=== PATIENT | male | born 1965 | race Caucasian/White ===

== ENCOUNTER 2018-02-24 09:53 | Emergency (ER) | payer OTHER, SELFPAY ==
[2018-02-24] VITALS (18 sets, daily range): BP systolic 74–137; BP diastolic 42–75; PULSE 27–80; RESP 14–23; TEMP 36.6; O2SAT 90–100; BMI 25.2
--- NOTE | 2018-02-24 09:56 | RAD_ITS ---
STUDY: X-RAY CHEST REASON FOR EXAM: Male, 52 years old. Chest pain. Allergic reaction to bee sting TECHNIQUE: Single AP portable view of the chest. COMPARISON: None. FINDINGS: The lungs are clear and expanded. There is no demonstrated pleural abnormality. Normal size heart. Normal mediastinum and miracle. Normal visualized pulmonary arteries. Normal visualized aortic arch and descending thoracic aorta. Normal visualized thoracic spine. Normal visualized ribs, clavicles, and shoulders. There is no demonstrated abnormality of the visualized soft tissue structures of the upper abdomen. RAD/Chest 1 View (Portable) IMPRESSION: Normal x-ray examination of the chest. Electronically Signed: Juan Herndon MD at 10:21 EDT , Service support ,
--- NOTE | 2018-02-24 09:57 | EKG12_ITS ---
Test Reason : ALLERGIC RXN Blood Pressure : / mmHG Vent. Rate : 041 BPM Atrial Rate : 041 BPM P-R Int : 162 ms QRS Dur : 106 ms QT Int : 474 ms P-R-T Axes : 026 -23 048 degrees QTc Int : 391 ms Marked sinus bradycardia Abnormal ECG Confirmed by SHARITA MIMS MD ([id number]), supervising film or videotape editor CHINTAN MONSIVAIS ([id number]) on 02/28/2018 3:41:48 PM Referred By: AYAD Confirmed By:SHARITA MIMS MD
[2018-02-24] MEDS: DiphenhydrAMINE 50 MG/ML Syringe 25 MG IV (10:03)
[2018-02-24] MEDS: MethylPREDNISolone 125 MG/2 ML Vial IV (10:03)
[2018-02-24] MEDS: 0.9% Normal Saline 1,000 ML 1000 ML IV (10:04)
[2018-02-24 10:15] LABS: Absolute Lymphocyte Count 1.51 X10^3/ul (0.83-4.51); Absolute Neutrophil Count 1.2 X10^3/uL (2.0-7.7); Basophil# 0.02 X10^3/uL; Basophil% 0.6 % (0-1); Eosinophil# 0.06 X10^3/uL; Eosinophils% 1.9 % (0-5); Hematocrit 40.4 % (40-54); Hemoglobin 13.8 g/dl (13.0-16.5); Lymphocyte # 1.51 X10^3/ul (4.0); Lymphocyte % 47.9 % (19-41); Mean Corp Hgb Conc 34.2 g/gl (32-36); Mean Corpuscular Volume 93.7 fL (80-94); Mean Platelet Vol. 9.1 fl (6.2-12.0); Monocyte# 0.35 X10^3/uL; Monocyte% 11.1 % (0-10); Neutrophil % 38.2 % (47-70); Platelet Count 220 K/mm3 (150-450); RBC Distribution Width CV 13.5 % (11.6-14.6); RBC Distribution Width SD 46.7 fl (35.1-43.9); Red Blood Count 4.31 M/mm3 (4.6-6.2); White Blood Count 3.2 K/mm3 (4.4-11.0)
[2018-02-24 10:16] LABS: POSITIVE COUNT NO; POSITIVE DIFFERENTIAL NO; POSITIVE MORPHOLOGY NO
--- NOTE | 2018-02-24 10:21 | ED.RN ---
HEART RATE IMPROVED WITH SECOND IM EPI. COLOR IMPORVED. NO LONGER DIAPHORETIC. EPI DRIP AT BEDSIDE, HOLDING AT THIS TIME PER DR ABEL.
[2018-02-24 10:33] LABS: Anion Gap 7 (5-15); BUN 20 mg/dL (7-18); BUN/Creat Ratio 15.9 RATIO (10-20); Calcium,Total 10.3 mg/dL (8.5-10.1); Chloride 105 mmol/L (98-107); Creatinine, Serum 1.26 mg/dL (0.70-1.30); EST Glomerular Filtration Rate 64 mL/min (>60); Est Glom Filt Rate - Afr Amer 77 mL/min (>60); Estimated Creatinine Clearance 66.35 ml/min; Glucose 101 mg/dL (74-106); Potassium 4.4 mmol/L (3.5-5.1); Sodium Level 140 mmol/L (136-145)
--- NOTE | 2018-02-24 10:34 | EKG12_ITS ---
Test Reason : REPEAT Blood Pressure : / mmHG Vent. Rate : 067 BPM Atrial Rate : 076 BPM P-R Int : 150 ms QRS Dur : 106 ms QT Int : 426 ms P-R-T Axes : 043 -37 030 degrees QTc Int : 450 ms Sinus rhythm with marked sinus arrhythmia Left axis deviation Abnormal ECG Confirmed by PRASANNA SONI, SHARITA ([id number]), electronics maintenance technician CHINTAN MONSIVAIS ([id number]) on 02/28/2018 3:42:05 PM Referred By: PAGE Confirmed By:SHARITA MIMS MD
--- NOTE | 2018-02-24 12:45 | ED.DCSUM_ITS ---
- ER Visit Summary Date of Service: 02/24/18 Chief Complaint: Bee sting History of Present Illness: The patient is a 52 M that was stung by a bee over his left Achilles region. This was less than a half hour prior to arrival. He is presenting with sweating and lightheadedness. He feels cold. Denies any history of anaphylaxis. He did not take anything prior to arrival. Denies chest pain or shortness of breath. Denies nausea or vomiting. Denies any other injuries or exposures. Physical Examination: Mean arterial blood pressure is 55. Heart rate is in the 40s. Respiratory rate 14. 100% on nasal cannula. Afebrile. Patient is diaphoretic and in mild distress. Alert and oriented. No focal or lateralizing neurologic abnormalities. Heart is bradycardic and regular. Lungs are clear and abdomen is soft. Extremities show erythema over his left Achilles region. No stinger was visualized. His extremities are otherwise slightly pale. No rash or swelling noted diffusely. Test Results: EKG showed sinus rhythm at a 41. CBC and BMP unremarkable. Troponin normal. Chest x-ray normal. Emergency Department Course and Treatment: Patient was seen immediately. Placed on a monitor and oxygen. He was given a fluid bolus. Treated with an EpiPen, Solu-Medrol, and Benadryl IV. Patient had no significant change after the first EpiPen dose. I ordered an epinephrine drip. While awaiting this, he received a second dose of IM epinephrine. Patient had subsequent improvement. Repeat EKG was done and showed a rate of 67 , sinus rhythm, no acute changes. He continued to have a fluid bolus. He did not require an epinephrine drip. Patient was observed after the second dose of epinephrine. We will recheck a troponin, but otherwise he is doing well. Vitals including heart rate and blood pressure have stabilized. Patient maintain a heart rate in the 60s-70s. Blood pressures remained stable. Skin appears normal. Normal mentation. No new or worsening symptoms. Patient will be discharged after over 4 hours of observation in the emergency department. Rebound symptoms were described. He was given a prescription for an EpiPen. Call 911 if you have to use it. He was also given a prescription for Benadryl and prednisone. Treatment Plan: As above Disposition: Discharged Impression: 1. Anaphylaxis This note was generated with demandmartation software. It may contain incorrect words, spelling, and punctuation that were not noted in review of the chart prior to signing ED Disposition - Plan for ED Patient: Chief Complaint: Allergic Reaction Referrals: Sam Stevens DO [Primary Care Provider] -
--- NOTE | 2018-02-24 15:04 | ED.DEP ---
ED Disposition - Plan for ED Patient: Chief Complaint: Allergic Reaction Instructions: ED Anaphylaxis General Prescriptions: Epinephrine [Epi Pen] 0.3 mg IM X1 #2 syringe Prednisone 40 mg PO DAILY #16 tab DiphenhydrAMINE [Benadryl] 25 mg PO TID #15 cap Referrals: Sam Stevens DO [Primary Care Provider] -
== END 2018-02-24 15:29 | disposition home or self-care (01) ==
PROVIDERS: Emergency Provider Emergency Medicine; Family Provider Preventive Medicine Occupational Medicine; PCP Preventive Medicine Occupational Medicine
DX: T63.441A Toxic effect of venom of bees, accidental (unintentional), initial encounter (principal); T78.2XXA Anaphylactic shock, unspecified, initial encounter; Y93.9 Activity, unspecified; Y92.9 Unspecified place or not applicable; Y99.9 Unspecified external cause status; I10 Essential (primary) hypertension; Z79.899 Other long term (current) drug therapy
CPT/HCPCS: 71045; 80048; 84484; 85025; 93005; 96361; 96372; 96374; 96375; 99285; J7030; J7050; A4216

== ENCOUNTER 2020-12-08 14:54 | Inpatient (IN) | payer OTHER, SELFPAY ==
[2020-12-08 14:55] VITALS: BP 139/112; PULSE 65; RESP 16; TEMP 36.8; O2SAT 96; BMI 29.0
--- NOTE | 2020-12-08 15:23 | ED.DCSUM_ITS ---
History of Present Illness Chief Complaint: Substance Abuse Detail of Chief Complaint: Alcohol dependency Informant: Patient, Significant Other Limited by: Intoxicated Onset: - - Patient states he began drinking at the age of 17 Context: Gradual Onset Timing: Continuous Quality: Drinks between 10-18 beers per day Location: Home Current Severity: Severe Maximum Severity: Severe Worsened by: Nothing Relieved by: Nothing Associated Symptoms: No symptoms of withdrawal presently. Narrative: Patient is a 55-year-old male who admits that he started drinking at age 17. He drinks on average 10 beers a day. states during the evening he has 324 ounce cans of beer and a container that is even larger for his fourth drink. He has never been in a detox program. He drives a dump truck. He has not made it to work the last 2 days. His last drink was 2 hours ago. He presently has no symptoms withdrawal. Nurse states he is hallucinating. He has no hallucinations or delusions presently based on my examination at 1520. Patient denies headache, visual, ocular auditory symptoms. Patient has cardiac respiratory symptoms. Patient denies GI symptoms and specifically hematemesis, melena medic easier. He denies dysuria, frequency, urgency or hematuria. He denies bruising easily. He denies illicit drug use. Prior similar symptoms: No Recent Illness/Hospitalization: No - Past Medical History (1) History of hypertension Status: Acute Past Medical History - Allergies and Home Meds Allergies/Adverse Reactions: Allergies Penicillins [PCN] Allergy (Verified 12/08/20 14:54) Unknown BEES Allergy (Uncoded 12/08/20 14:54) Anaphylaxis Primary Care Physician: Sam Stevens DO [Primary Care Provider] - Prior records reviewed: Yes Lives: Spouse/ Significant Other Smoking Status: Former smoker Alcohol: Heavy Drugs: None Review of Systems General: Denies: Chills, Fever, Sweats Eyes: Denies: Visual changes - bilaterally, Blurred Vision - bilaterally, Diplopia ENT: Denies: Bilateral ear pain, Rhinorrhea, Sore throat Cardiovascular: Denies: Chest pain, Palpitations Respiratory: Denies: Dyspnea, Cough, Dyspnea on exertion Gastrointestinal: Denies: Abdominal pain, Nausea, Vomiting, Diarrhea, Melena, Hematochezia Genitourinary: Denies: Dysuria, Hematuria, Frequency Musculoskeletal: Denies: Myalgias, Arthralgias, Neck pain, Back pain, Extremity Pain Skin: Reports: Abrasions - Over the medial epicondyles.. Denies: Rash, Wounds Neurological: Denies: Headache, Weakness, Numbness Endocrine: Denies: Polyuria, Polydipsia Hematologic: Denies: Easy bruising, Easy bleeding Allergy: Denies: Uticaria Physical Exam Vital Signs/Narrative: Vital Signs Temp Pulse Resp BP Pulse Ox 12/08/20 14:55 98.2 F 65 16 139/112 H 96 Inital Vital Signs reviewed: Yes General: Well nourished, Well developed, No Acute Distress Head: Normocephalic, Atraumatic Eyes: Perrl, EOMI ENT: Moist mucous membranes, No rhinorrhea Neck: Supple, Nontender Cardiovascular: Regular rate, Regular rhythm, No murmurs Respiratory: No distress, CTA bilaterally, Chest nontender Abdomen: Soft, Nontender, Nondistended, Normal bowel sounds Back: Nontender, Normal Inspection Extremities: Nontender, No edema, - - Axillary, median, radial and ulnar function intact. Skin: Normal color, No rash, Trauma - Radiation over the left medial epicondyle. Neurological: Alert, Oriented x3, Cranial nerves II-XII grossly intact, Normal Strength, Normal Sensation, Normal DTR - There is no clonus or Babinski sign., - - Cranials 2 through 12 are intact. Patient has an inappropriate laugh. Psychological: Normal affect, Normal Mood Diagnostic/Tx/Re-eval Laboratory Results 12/08/20 15:40 Sodium 140 Potassium 4.2 Chloride 105 Carbon Dioxide 28.0 Anion Gap 7 BUN 11 Creatinine 0.70 Estim Creat Clear Calc 107.60 Est GFR (MDRD) Af Amer 150 Est GFR (MDRD) Non-Af 124 BUN/Creatinine Ratio 15.7 Glucose 125 H Calcium 8.7 Total Bilirubin 0.20 AST 38 H ALT 34 Alkaline Phosphatase 52 Total Protein 7.6 Albumin 3.9 Globulin 3.7 Albumin/Globulin Ratio 1.1 Blood sugar is slightly elevated. Alcohol is 352. - Medical Decision Making Is clinically intoxicated. There is no signs of alcohol withdrawal. Patient is requesting detox. His alcohol has affected his ability to go to work the last 2 days. Will contact hospitalist for admission. ED Disposition - Plan for ED Patient: Disposition: Acute Care Hospital [facility] Diagnosis: Alcohol dependency, Alcohol intoxication with blood alcohol level greater than 0.3 Referrals: Sam Stevens DO [Primary Care Provider] -
[2020-12-08 16:46] LABS: ALB/GLOB Ratio 1.1 RATIO (0.9-2.4); AST(SGOT) 38 U/L (15-37); Alanine Aminotransfer ALT/SGPT 34 U/L (16-61); Albumin, Serum 3.9 g/dL (3.2-5.0); Alkaline Phosphatase 52 U/L (45-117); Anion Gap 7 (5-15); BUN 11 mg/dL (7-18); BUN/Creat Ratio 15.7 RATIO (10-20); Calcium,Total 8.7 mg/dL (8.5-10.1); Chloride 105 mmol/L (98-107); EST Glomerular Filtration Rate 124 mL/min (>60); Est Glom Filt Rate - Afr Amer 150 mL/min (>60); Globulin 3.7 g/dL (2.2-4.2); Glucose 125 mg/dL (74-106); Potassium 4.2 mmol/L (3.5-5.1); Protein, Total 7.6 g/dL (6.4-8.2); Sodium Level 140 mmol/L (136-145)
--- NOTE | 2020-12-08 17:10 | CM.ED ---
SOCIAL WORK Referral Source: Dr. Piper Reason for Consult: Requesting detox from alcohol Patient presents to [facility] ER for detox from alcohol. Patient stated drinks around 10 beers/day. present with patient. Patient in agreement with detox. Treatment Navigator, Aric updated on patient's admission. Alexey from to be in tomorrow to complete assessment. Plan: Admit to [facility] Maldonado, GRAVITY METER OBSERVER, CYBER INCIDENT HANDLER
--- NOTE | 2020-12-08 17:11 | NURSING ---
[facility] GREATER THAN 0.3
--- NOTE | 2020-12-08 17:14 | HP.PCM_ITS ---
Problem List (1) Impending alcohol withdrawal Status: Acute (2) Alcohol intoxication Status: Acute (3) Alcohol abuse Status: Chronic (4) Hypertension Status: Chronic History of Present Illness Date of Admission: 12/08/20 Chief Complaint: Alcohol abuse requesting detox. The patient is a 55 year old M with past medical history as mentioned above presented to the emergency room requesting admission for acute alcohol intoxication/impending withdrawal for medical stabilization. Patient stated that he has been drinking since age of 17, he drinks average of 10 beers daily and his last drink was 3 AM this morning. At this time, he has no significant withdrawal symptoms. He never went into detox program before. Reportedly, his is concerned about the patient because he was not able to go to work for the last couple of days. He denied use of street drugs. He has history of hypertension which has been under control with lisinopril, HCTZ and bisoprolol. In the emergency department, his vital signs were stable. BMP was unremarkable. Blood alcohol level was 352. Urine drug screen is pending. Patient is being admitted for acute alcohol intoxication/impending withdrawal for medical stabilization. Past Medical History Past Medical History (Chronic Problems): Chronic Problems Alcohol abuse (Chronic) Hypertension (Chronic) Allergies Penicillins [PCN] Allergy (Verified 12/08/20 14:54) Unknown BEES Allergy (Uncoded 12/08/20 14:54) Anaphylaxis Home Medications: Ambulatory Orders Medication Instructions Recorded Bisoprolol/Hydrochlorothiazide 1 tab PO DAILY 02/24/18 [Bisoprolol-Hctz 10-6.25 mg Tab] Epi Pen 0.3 mg IM X1 #2 syringe 02/24/18 Lisinopril 20 mg PO DAILY 02/24/18 Surgical History: no surgical history Psychiatric History: No pertinent psych hx Lives: Spouse/ Significant Other Smoking Status: Former smoker Tobacco Use: Chew Alcohol: Heavy Drugs: None - *Family History Maternal History Items: No pertinent history Paternal History Items: No pertinent history Review of Systems Constitutional: Denies: Anorexia, Chills, Fever, Weakness Eyes: Denies: Blurred vision, Double vision, Drainage, Redness HEENT: Denies: Difficulty Hearing, Dysphasia, Ear Pain, Eye Pain, Nasal Congestion, Sore Throat Cardiovascular: Denies: Chest Pain, Chest Pressure, Chest Tightness, Edema, Palpitations, Syncope Respiratory: Denies: Cough, Pleuritic Pain, Shortness of Breath, Sputum production, Wheezing Gastrointestinal: Denies: Abdominal Pain, Constipation, Diarrhea, Nausea, Vomiting Genitourinary: Denies: Dysuria, Frequency, Hematuria Musculoskeletal: Denies: Arm Pain, Back Pain, Foot Pain, Joint Tenderness, Neck Pain Skin: Denies: Dryness, Rash Neurological: Denies: Balance problems, Double vision, Change in Speech, Slurred speech, Confusion, Focal weakness, Headaches Psychiatric: Denies: Anxiety, Depression Endocrine: Denies: Change in Body Habitus, Polydipsia, Polyuria VTE Information - Inpt Only VTE Present on Admission: No VTE Mechan Device Prophylaxis: None VTE Pharm Prophylaxis ordered?: No - Physical Exam Vitals/I&O's: Vital Signs Temp Pulse Resp BP Pulse Ox 98.2 F 65 16 139/112 H 96 12/08/20 14:55 12/08/20 14:55 12/08/20 14:55 12/08/20 14:55 12/08/20 14:55 Oxygen Delivery Method Room Air Weight: 180 lb Body Mass Index (BMI) 29.0 General: Alert, Oriented x3, Cooperative, No apparent distress HEENT: Atraumatic, PERRLA, EOMI, Normocephalic Oral: Moist Mucosa, No Gingival or Mucosal Lesions/ Ulcerations Neck: Supple, No JVD, Negative Carotid Bruits, Trachea Midline, Thyroid Normal Size and Texture Lungs: Clear to auscultation, Normal air movement, No rhonchi, No wheeze, No rales Cardiovascular: Regular rate, Regular Rhythm, Normal S1, Normal S2, No murmurs, PMI Normal Abdomen: Bowel Sounds Present, Soft, Non Tender, Non-Distended, No Hepato- splenomegaly Extremities: No clubbing, No cyanosis, No edema Skin: No rashes, No breakdown Lymphatic: No Cervical, Supraclavicular, or Inguinal Adenopathy Neurological: Cranial nerves II-XII grossly intact, Motor Exam 5/5 strength throughout Psych/Mental Status: Normal Affect, Appropriate, Alert and oriented to time, place, person, mood and affect Laboratory Results 12/08/20 15:40: Sodium 140, Potassium 4.2, Chloride 105, Carbon Dioxide 28.0, Anion Gap 7, BUN 11, Creatinine 0.70, Estim Creat Clear Calc 107.60, Est GFR (MDRD) Af Amer 150, Est GFR (MDRD) Non-Af 124, BUN/Creatinine Ratio 15.7, Glucose 125 H, Calcium 8.7, Total Bilirubin 0.20, AST 38 H, ALT 34, Alkaline Phosphatase 52, Total Protein 7.6, Albumin 3.9, Globulin 3.7, Albumin/Globulin Ratio 1.1 12/08/20 15:40: Ethyl Alcohol 352.0 H* Assessment/Plan All Active Problems Impending alcohol withdrawal (Acute) Alcohol intoxication (Acute) This is a 55 years old male patient presented to the emergency room requesting admission for acute alcohol intoxication with impending withdrawal and is being admitted for medical stabilization. #1 acute alcohol desiccation/impending withdrawal: Blood alcohol level is 352. Patient is alert and oriented x3. Vital signs are stable. Urine drug screen is pending. Patient denied any use of street drugs. Plan: Admit to MedSur floor, start alcohol withdrawal protocol with tapering phenobarbital, thiamine and folic acid supplement, Tylenol as needed, as needed Bentyl, hypertension, Vistaril, Imodium, Zofran and trazodone, consult 180 program. #2 hypertension: Blood pressure stable, continue lisinopril, HCTZ and bisoprolol. #3 DVT prophylaxis: Low risk patient, no prophylaxis indicated, ambulate. This note was generated with [employer] dictation software. It may contain incorrect words, spelling, and punctuation that were not noted in checking the note before signing. Inpatient E&M: 47031 Init Hosp L2
[2020-12-08 17:26] VITALS: BP 152/89; PULSE 65; RESP 16; TEMP 36.8; O2SAT 96
[2020-12-08 17:38] VITALS: BP 124/87; PULSE 68; RESP 18; O2SAT 99
[2020-12-08 18:04] VITALS: BMI 27.3
[2020-12-08 18:06] VITALS: BP 117/72; PULSE 77; RESP 16; TEMP 36.6; O2SAT 99
[2020-12-08 18:11] VITALS: BMI 27.3
[2020-12-08] MEDS: Phenobarbital 32.4 MG Tablet 64.8 MG PO ×2 (18:22→22:14)
[2020-12-08 22:10] LABS: Amphetamine Urine VISTA NEGATIVE (<1000 ng/mL); Barbiturate Urine VISTA NEGATIVE (< 200 ng/mL); Benzodiazepine Urine VISTA NEGATIVE (< 200 ng/mL); Cocaine Urine VISTA NEGATIVE (< 300 ng/mL); Ecstacy Urine VISTA NEGATIVE (< 500 ng/mL); Methadone Urine VISTA NEGATIVE (< 300 ng/mL); PCP Urine VISTA NEGATIVE (< 25 ng/mL); THC Urine VISTA NEGATIVE (< 50 ng/mL); Vista UDS pH Range 6
[2020-12-08 22:46] VITALS: BP 120/65; PULSE 77; RESP 16; TEMP 37.1; O2SAT 96
[2020-12-09 02:00] VITALS: BP 124/68; PULSE 63; RESP 16; TEMP 37; O2SAT 98
[2020-12-09] MEDS: Phenobarbital 32.4 MG Tablet 64.8 MG PO ×6 (02:05→22:34)
[2020-12-09 06:00] VITALS: BP 135/79; PULSE 59; RESP 16; TEMP 37.3; O2SAT 99
[2020-12-09] MEDS: Thiamine Hydrochloride 100 MG Tablet PO (10:11)
[2020-12-09] MEDS: Folic Acid 1 MG Tablet PO (10:11)
[2020-12-09] MEDS: hydroCHLOROthiazide 6.25mg TAB 6.25 MG PO (10:11)
[2020-12-09] MEDS: Lisinopril 20 MG Tablet PO (10:11)
[2020-12-09] MEDS: Bisoprolol Fumarate 5 MG Tablet 10 MG PO (10:11)
[2020-12-09 10:19] VITALS: BP 143/87; PULSE 75; RESP 18; TEMP 36.6
--- NOTE | 2020-12-09 10:30 | PN_ITS ---
Patient Problems: Active and Suspected Problems Impending alcohol withdrawal (Acute) Alcohol intoxication (Acute) Subjective: Feels good. No issues overnight. No tremors. Tolerating PO. Vitals/I&O's: Vital Signs Temp Pulse Resp BP Pulse Ox 36.6 C 75 18 143/87 H 99 12/09/20 10:19 12/09/20 10:19 12/09/20 10:19 12/09/20 10:19 12/09/20 06:00 Oxygen Flow Rate (L/min) 96 Oxygen Delivery Method Room Air Weight: 76.839 kg Body Mass Index (BMI) 27.3 General: Alert, No apparent distress HEENT: Atraumatic, Normocephalic Oral: Moist Mucosa, No Gingival or Mucosal Lesions/ Ulcerations Neck: No Nodes, Thyroid Normal Size and Texture Lungs: Clear to auscultation, Normal air movement, No rhonchi, No wheeze, No rales Cardiovascular: Regular rate, Regular Rhythm, Normal S1, Normal S2, No murmurs Abdomen: Bowel Sounds Present, Soft, Non Tender, Non-Distended, No Hepato- splenomegaly Extremities: No edema, No Calf Tenderness Psych/Mental Status: Normal Affect, Appropriate Laboratory Results 12/08/20 15:40: Sodium 140, Potassium 4.2, Chloride 105, Carbon Dioxide 28.0, Anion Gap 7, BUN 11, Creatinine 0.70, Estim Creat Clear Calc 107.60, Est GFR (MDRD) Af Amer 150, Est GFR (MDRD) Non-Af 124, BUN/Creatinine Ratio 15.7, Glucose 125 H, Calcium 8.7, Total Bilirubin 0.20, AST 38 H, ALT 34, Alkaline Phosphatase 52, Total Protein 7.6, Albumin 3.9, Globulin 3.7, Albumin/Globulin Ratio 1.1 12/08/20 15:40: Ethyl Alcohol 352.0 H* 12/08/20 21:30: Urine Opiates Screen NEGATIVE, Urine Methadone Screen NEGATIVE, Ur Barbiturates Screen NEGATIVE, Ur Phencyclidine Scrn NEGATIVE, Ur Amphetamines Screen NEGATIVE, U Methamphetamin-MDMA NEGATIVE, U Benzodiazepines Scrn NEGATIVE, Urine Cocaine Screen NEGATIVE, U Cannabinoids Screen NEGATIVE, Ur Drug Screen Comment Current Medications Acetaminophen (Acetaminophen 500 Mg Tablet) 500 mg PO Q4H PRN PRN PRN Reason: Temp > 100.4 F Bisoprolol Fumarate (Bisoprolol Fumarate 5 Mg Tablet) 10 mg PO DAILY [facility] Last Admin: 12/09/20 10:11 Dose: 10 mg Documented by: Dicyclomine HCl (Dicyclomine 10 Mg Capsule) 20 mg PO Q6H PRN PRN PRN Reason: abdominal discomfort Folic Acid (Folic Acid 1 Mg Tablet) 1 mg PO DAILY@0800 [facility] Last Admin: 12/09/20 10:11 Dose: 1 mg Documented by: Gabapentin (Gabapentin 300 Mg Capsule) 300 mg PO Q8H PRN PRN PRN Reason: moderate to severe anxiety Hydrochlorothiazide (Hydrochlorothiazide 6.25mg Tab) 6.25 mg PO DAILY [facility] Last Admin: 12/09/20 10:11 Dose: 6.25 mg Documented by: Hydroxyzine Pamoate (Hydroxyzine Olga 25 Mg Capsule) 50 mg PO Q4H PRN PRN PRN Reason: mild anxiety Lisinopril (Lisinopril 20 Mg Tablet) 20 mg PO DAILY [facility] Last Admin: 12/09/20 10:11 Dose: 20 mg Documented by: Loperamide HCl (Loperamide 2 Mg Capsule) 2 mg PO Q4H PRN PRN PRN Reason: LOOSE STOOLS Nutritional Formula (Lactose Free) (Ensure Enlive 120 Ml Liquid) 120 ml PO 4X/DAY [facility] Last Admin: 12/09/20 10:16 Dose: 120 ml Documented by: Ondansetron HCl (Ondansetron 8 Mg Tablet) 8 mg PO Q8H PRN PRN PRN Reason: NAUSEA Phenobarbital (Phenobarbital 32.4 Mg Tablet) 97.2 mg PO Q4H [facility]; Taper Stop: 12/13/20 01:59 Last Admin: 12/09/20 10:15 Dose: 97.2 mg Documented by: Sodium Chloride (0.9% Saline Lock 10 Ml Syringe) 10 - 40 ml IV UD PRN PRN Reason: SALINE FLUSH Thiamine HCl (Thiamine Hydrochloride 100 Mg Tablet) [facility] Last Admin: 12/09/20 10:11 Dose: 100 mg Documented by: Trazodone HCl (Trazodone 100 Mg Tablet) 100 mg PO QHS PRN PRN Reason: INSOMNIA STROKE Vital Signs/Narrative: Vital Signs Temp Pulse Resp BP 12/09/20 10:19 36.6 C 75 18 143/87 H Medical Necessity - Tobacco Use Smoking Status: Former smoker Tobacco Use: Chew Assessment/Plan All Active Problems Impending alcohol withdrawal (Acute) Alcohol intoxication (Acute) 1. acute alcohol withdrawal pt drinks 3-4 25oz Natural Lights/day. Last drink on 12/08 continue phenobarbital thiamine and folate. addiction medicine to see pt states that he has already been in contact w Brandan 2. VTE prophylaxis: low risk and not indicated Inpatient E&M: 78704 Subs Hosp L2
--- NOTE | 2020-12-09 11:33 | ADDICTION ---
This comic writer met with PT to complete ASAM, MSE, AUDIT assessments and to plan for d/c. All assessments completed, faxed to [facility] and placed in PT's chart. PT plans to f/u with [facility] for individual counseling and attend AA meetings. Appt scheduled for f/u on 12/11/2020 at 3PM. No transportation needs noted.
[2020-12-09 14:47] VITALS: BP 118/64; PULSE 55; RESP 16; TEMP 36.6; O2SAT 97
[2020-12-09 18:29] VITALS: BP 119/64; PULSE 54; RESP 16; TEMP 36.8; O2SAT 98
[2020-12-09 22:00] VITALS: BP 132/93; PULSE 57; RESP 16; TEMP 36.7; O2SAT 99
[2020-12-10 02:00] VITALS: BP 111/63; PULSE 53; RESP 16; TEMP 36.8; O2SAT 98
[2020-12-10] MEDS: Phenobarbital 32.4 MG Tablet 64.8 MG PO ×3 (02:10→09:55)
[2020-12-10] MEDS: Nicotine Polacrilex 2 MG GUM PO (02:13)
--- NOTE | 2020-12-10 09:04 | DCINST_ITS ---
- Discharge Diagnoses Current Active Problems: Current Active and Chronic Problems Impending alcohol withdrawal (Acute) Alcohol intoxication (Acute) Alcohol abuse (Chronic) Hypertension (Chronic) You will use the following diet at home:: Regular Your food should be the consistency of: Regular Your liquids should be the consistency of: Regular/Thin Allergies/Adverse Reactions: Allergies Penicillins [PCN] Allergy (Verified 12/08/20 14:54) Unknown BEES Allergy (Uncoded 12/08/20 14:54) Anaphylaxis Medications to take at Discharge Bisoprolol/Hydrochlorothiazide [Bisoprolol-Hctz 10-6.25 mg Tab] 1 tab PO DAILY 0 02/24/18 Epi Pen [Epi-Pen] 0.3 mg IM X1 #2 syringe 02/24/18 Lisinopril 20 mg PO DAILY 02/24/18 Multivitamin 1 each PO DAILY #1 tablet 12/10/20 The following prescriptions were given: Multivitamin 1 each PO DAILY #1 tablet Primary Care Physician: Sam Stevens DO [Primary Care Provider] - Please follow up with your Primary Care Physician in: routine follow up Test Results: Test results from this visit will be discussed in further detail at your follow- up appointment, if applicable. Please Follow Up With: [facility] When: on 12/11/2020, already scheduled. Proposed Discharge Date: 12/10/20
--- NOTE | 2020-12-10 09:06 | PCM.DC.SUM ---
Discharge Date and Diagnosis - Problem List Patient Problems: Active and Suspected Problems Impending alcohol withdrawal (Acute) Alcohol intoxication (Acute) Date of Admission: 12/08/20 Date of Discharge: 12/10/20 - Primary Discharge Diagnosis Acute Problems: Active Problems Impending alcohol withdrawal (Acute) Alcohol intoxication (Acute) - Secondary Discharge Diagnosis Chronic Problems: Chronic Problems Alcohol abuse (Chronic) Hypertension (Chronic) Hospital Course and Treatment Operations: None Procedures: None Summary of Care Provided: The patient is a 55 year old M presents seeking treatment for acute alcohol withdrawal. Patient drinks 3 to 4 25 ounce beers daily. Tall and his course during hospitalization was uncomplicated. Patient has really had no symptoms of severe withdrawal. Discussed with the patient since he has an appointment at [facility] on the second that we could keep him here if he felt that he would resume drinking before to send him home today. He states that all the alcohol is out of his house and that he feels very confident that he will not resume drinking until his follow-up ointment at [facility]. Patient will be going to the intensive outpatient program there and they may look at other programs such as alcoholics anonymous regards to maintaining sobriety. Patient is very motivated to quit and I feel he will have a higher likelihood of success in maintaining sobriety. [] Patient Problems: Active and Suspected Problems Impending alcohol withdrawal (Acute) Alcohol intoxication (Acute) - Physical Exam Vitals/I&O's: Vital Signs Temp Pulse Resp BP Pulse Ox 36.8 C 53 L 16 111/63 98 12/10/20 02:00 12/10/20 02:00 12/10/20 02:00 12/10/20 02:00 12/10/20 02:00 Oxygen Flow Rate (L/min) 96 Oxygen Delivery Method Room Air Weight: 76.8 kg Body Mass Index (BMI) 27.3 Intake and Output for Last 24 Hours 12/08/20 12/09/20 12/10/20 23:59 23:59 23:59 Intake Total 825 / 825 Balance 825 / 825 General: Alert, No apparent distress HEENT: Atraumatic, Normocephalic Psych/Mental Status: Normal Affect, Appropriate Current Medications Acetaminophen (Acetaminophen 500 Mg Tablet) 500 mg PO Q4H PRN PRN PRN Reason: Temp > 100.4 F Bisoprolol Fumarate (Bisoprolol Fumarate 5 Mg Tablet) 10 mg PO DAILY [facility] Last Admin: 12/09/20 10:11 Dose: 10 mg Documented by: Dicyclomine HCl (Dicyclomine 10 Mg Capsule) 20 mg PO Q6H PRN PRN PRN Reason: abdominal discomfort Folic Acid (Folic Acid 1 Mg Tablet) 1 mg PO DAILY@0800 [facility] Last Admin: 12/09/20 10:11 Dose: 1 mg Documented by: Gabapentin (Gabapentin 300 Mg Capsule) 300 mg PO Q8H PRN PRN PRN Reason: moderate to severe anxiety Hydrochlorothiazide (Hydrochlorothiazide 6.25mg Tab) 6.25 mg PO DAILY [facility] Last Admin: 12/09/20 10:11 Dose: 6.25 mg Documented by: Hydroxyzine Pamoate (Hydroxyzine Olga 25 Mg Capsule) 50 mg PO Q4H PRN PRN PRN Reason: mild anxiety Lisinopril (Lisinopril 20 Mg Tablet) 20 mg PO DAILY [facility] Last Admin: 12/09/20 10:11 Dose: 20 mg Documented by: Loperamide HCl (Loperamide 2 Mg Capsule) 2 mg PO Q4H PRN PRN PRN Reason: LOOSE STOOLS Nicotine Polacrilex (Nicotine Polacrilex 2 Mg Gum) 2 mg PO Q2H PRN PRN PRN Reason: Tobacco craving Last Admin: 12/10/20 02:13 Dose: 2 mg Documented by: Nutritional Formula (Lactose Free) (Ensure Enlive 120 Ml Liquid) 120 ml PO 4X/DAY [facility] Last Admin: 12/09/20 22:35 Dose: 120 ml Documented by: Ondansetron HCl (Ondansetron 8 Mg Tablet) 8 mg PO Q8H PRN PRN PRN Reason: NAUSEA Phenobarbital (Phenobarbital 32.4 Mg Tablet) 64.8 mg PO Q4H [facility]; Taper Stop: 12/13/20 01:59 Last Admin: 12/10/20 06:06 Dose: 64.8 mg Documented by: Sodium Chloride (0.9% Saline Lock 10 Ml Syringe) 10 - 40 ml IV UD PRN PRN Reason: SALINE FLUSH Thiamine HCl (Thiamine Hydrochloride 100 Mg Tablet) 100 mg PO [facility] Last Admin: 12/09/20 10:11 Dose: 100 mg Documented by: Trazodone HCl (Trazodone 100 Mg Tablet) 100 mg PO QHS PRN PRN Reason: INSOMNIA Discharge Diet: No Restrictions Home Medications: Medications to take at Discharge Bisoprolol/Hydrochlorothiazide [Bisoprolol-Hctz 10-6.25 mg Tab] 1 tab PO DAILY 02/24/18 Epi Pen [Epi-Pen] 0.3 mg IM X1 #2 syringe 02/24/18 Lisinopril 20 mg PO DAILY 02/24/18 Multivitamin 1 each PO DAILY #1 tablet 12/10/20 Following Prescriptions Were Given to Patient: Multivitamin 1 each PO DAILY #1 tablet Primary Care Physician: Sam Stevens DO [Primary Care Provider] - Please follow up with your Primary Care Physician in: routine follow up Please Follow Up With: [facility] When: on 12/11/2020, already scheduled. Disposition: Home Minutes spent on discharge:: 26 Patient Condition:: Good Medical Necessity - Tobacco Use Smoking Status: Former smoker Tobacco Use: Chew Meaningful Use Info Meaningful Use Diagnoses (Choose all that apply): None applicable Inpatient E&M: 31985 Disch Hosp
[2020-12-10] MEDS: Folic Acid 1 MG Tablet PO (09:51)
[2020-12-10] MEDS: Thiamine Hydrochloride 100 MG Tablet PO (09:51)
[2020-12-10] MEDS: hydroCHLOROthiazide 6.25mg TAB 6.25 MG PO (09:52)
[2020-12-10] MEDS: Lisinopril 20 MG Tablet PO (09:52)
[2020-12-10] MEDS: Bisoprolol Fumarate 5 MG Tablet 10 MG PO (09:52)
== END 2020-12-10 12:34 | disposition home or self-care (01) | DRG 897 ==
LOC: ED 16:51 → MS3 17:27
PROVIDERS: Admitting Provider Hospitalist; Emergency Provider Emergency Medicine; PCP Preventive Medicine Occupational Medicine
DX: F10.239 Alcohol dependence with withdrawal, unspecified (principal); F10.229 Alcohol dependence with intoxication, unspecified; Y90.8 Blood alcohol level of 240 mg/100 ml or more; I10 Essential (primary) hypertension; Z87.891 Personal history of nicotine dependence; Z79.899 Other long term (current) drug therapy
CPT/HCPCS: 80053; 80307; 82077; 97802; 99283; A4216

== ENCOUNTER 2022-05-06 13:40 | Emergency (ER) | payer SELFPAY ==
[2022-05-06 13:42] VITALS: BP 165/89; PULSE 69; RESP 27; TEMP 36.7; O2SAT 96; BMI 28.7
--- NOTE | 2022-05-06 13:59 | EKG12_ITS ---
Test Reason : DIZZINESS Blood Pressure : / mmHG Vent. Rate : 064 BPM Atrial Rate : 064 BPM P-R Int : 134 ms QRS Dur : 096 ms QT Int : 394 ms P-R-T Axes : 023 -42 017 degrees QTc Int : 406 ms Normal sinus rhythm with sinus arrhythmia Left axis deviation Abnormal ECG Confirmed by DENISE SONI, MAKENZIE ([id number]), dictionary editor BURAK SIU ([id number]) on 05/09/2022 9:36:56 AM Referred By: Confirmed By:ADRIAN WALKER MD
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
[2022-05-06] MEDS: 0.9% Normal Saline 1,000 ML 1000 ML IV (14:03)
--- NOTE | 2022-05-06 14:05 | RAD_ITS ---
STUDY: X-RAY CHEST REASON FOR EXAM: Male, 56 years old. Near syncope TECHNIQUE: Single AP portable view of the chest. COMPARISON: Comparison is made with prior study dated 02/24/2018. FINDINGS: EKG electrodes are seen. Stable mild elevation of the right hemidiaphragm. The lungs are clear. There is no demonstrated pleural abnormality. Normal size heart. Normal mediastinum and miracle. Normal visualized pulmonary arteries. Normal visualized aortic arch and descending thoracic aorta. Normal visualized thoracic spine. Normal visualized ribs, clavicles, and shoulders. There is no demonstrated abnormality of the visualized soft tissue structures of the upper abdomen. RAD/Chest 1 View (Portable) IMPRESSION: Stable mild elevation of the right hemidiaphragm. The lungs are clear. Electronically Signed: Adriel Arnold MD at 14:17 EDT ,
[2022-05-06 14:30] VITALS: BP 144/82; PULSE 73; RESP 15; O2SAT 98
[2022-05-06 14:30] LABS: Absolute Lymphocyte Count 0.92 X10^3/uL (0.83-4.51); Absolute Neutrophil Count 1.7 X10^3/uL (2.0-7.7); Basophil# 0.08 X10^3/uL; Basophil% 2.6 % (0-1); Eosinophil# 0.03 X10^3/uL; Hemoglobin 13.9 g/dL (13.0-16.5); Lymphocyte # 0.92 X10^3/ul (0.83-4.51); Lymphocyte % 29.4 % (19-41); Mean Corp Hgb Conc 34.8 g/dL (32-36); Mean Corpuscular Volume 97.8 fL (80-94); Mean Platelet Vol. 9.6 fl (6.2-12.0); Monocyte# 0.37 X10^3/uL; Monocyte% 11.8 % (0-10); NRBC Flagged by Analyzer 0 % (0-5); Neutrophil # 1.72 X10^3/uL (2.7-7.7); Neutrophil % 54.9 % (47-70); Platelet Count 135 K/mm3 (150-450); RBC Distribution Width CV 12.7 % (11.6-14.6); RBC Distribution Width SD 45.3 fl (35.1-43.9); Red Blood Count 4.09 M/mm3 (4.6-6.2); White Blood Count 3.1 K/mm3 (4.4-11.0)
[2022-05-06 14:32] LABS: AST(SGOT) 119 U/L (15-37); Alanine Aminotransfer ALT/SGPT 78 U/L (16-61); Albumin, Serum 4.1 g/dL (3.2-5.0); Alkaline Phosphatase 94 U/L (45-117); Anion Gap 15 (5-15); BUN 7 mg/dL (7-18); Calcium,Total 9.7 mg/dL (8.5-10.1); Chloride 100 mmol/L (98-107); Creatinine, Serum 0.87 mg/dL (0.70-1.30); EST Glomerular Filtration Rate 96 mL/min (>60); Est Glom Filt Rate - Afr Amer 116 mL/min (>60); Estimated Creatinine Clearance 85.56 ml/min; Globulin 4.1 g/dL (2.2-4.2); Glucose 148 mg/dL (74-106); Potassium 3.9 mmol/L (3.5-5.1); Protein, Total 8.2 g/dL (6.4-8.2); Sodium Level 137 mmol/L (136-145); Troponin-I HS 4 pg/mL (3.0-78.0)
[2022-05-06 16:00] VITALS: BP 148/83; PULSE 86; RESP 16; O2SAT 99
[2022-05-06 16:05] VITALS: BP 149/103; BP 162/97; BP 165/117; PULSE 85; PULSE 86; PULSE 88
--- NOTE | 2022-05-06 16:54 | ED.RN ---
After giving pt discharge instructions pt had another 'episode' because he was feeling anxious about how he was going to get his car tomorrow. Became diaphoretic and tachypneic. Encouraged deep breathing and calming exercises. Pt settled down some. Given cool rag and a few minutes to relax.
--- NOTE | 2022-05-06 17:20 | ED.RN ---
Attempted again to DC pt as he stated he was feeling better. Pt got dressed and then while sitting on the edge of the bed he quickly laid down and got diaphoretic again stating he felt like he did earlier today and was dry heaving. Dr Dockery was updated. New order for [facility] obtained.
[2022-05-06] MEDS: Ondansetron ODT 4 MG Tablet PO (17:28)
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
--- NOTE | 2022-05-06 17:51 | ED.RN ---
Pt feels better, d/c at this time via wheelchair to call taxi for ride.
== END 2022-05-06 17:52 | disposition home or self-care (01) ==
PROVIDERS: Emergency Provider Student in an Organized Health Care Education/Training Program; PCP Preventive Medicine Occupational Medicine; Visit Provider Student in an Organized Health Care Education/Training Program
DX: R55 Syncope and collapse (principal); R00.2 Palpitations; D72.819 Decreased white blood cell count, unspecified; F41.9 Anxiety disorder, unspecified; Z79.899 Other long term (current) drug therapy; Z87.891 Personal history of nicotine dependence
CPT/HCPCS: 71045; 80053; 82077; 84484; 85025; 93005; 96360; 96361; 99285

== ENCOUNTER 2022-08-29 11:31 | Emergency (ER) | payer MEDICAID, SELFPAY ==
[2022-08-29 11:31] VITALS: BP 123/79; PULSE 74; RESP 14; TEMP 36.9; O2SAT 97; BMI 29.3
--- NOTE | 2022-08-29 14:34 | EDS_ITS ---
HPI History of Present Illness Chief Complaint: Head Injury Detail of Chief Complaint: Hit in the top of his head with plywood. Informant: patient Onset/Context/Timing Onset: Today Mechanism/Context: Blunt Injury and Incised Current Severity: Mild Maximum Severity: Mild Associated Symptoms Associated Symptoms: Negative for Parasthesias, Weakness, Loss of function, Inability to ambulate, Loss of consciousness or Amnesia Narrative Narrative: 57-year-old male was working there were lifting plywood he had a tobogganing. Said It Slipped and Hit Him in the Top of the Head Causing a Laceration. No LOC. No Neck Pain. He Is Not on Any Blood Thinners. This Occurred about 3 Hours Ago. Prior similar symptoms: No Recent Illness/Hospitalization: No PFSH PFSH Home Medications bisoprolol 10 mg-hydrochlorothiazide 6.25 mg tablet 1 tab PO DAILY blood pressure 02/24/18 [History Last Taken 12/08/20] epinephrine 0.3 mg/0.3 mL injection, auto-injector 0.3 mg (0.3 mL) IM X1 ##2 02/24/18 [Rx Last Taken Unknown] lisinopril 20 mg tablet 20 mg PO DAILY blood pressure 02/24/18 [History Last Taken 12/08/20] multivitamin 1 each PO DAILY #1 TAB 12/10/20 [Rx Last Taken Unknown] Allergy/AdvReac Type Severity Reaction Status Date / Time bee venom protein (honey bee) Allergy Anaphylaxis Verified 08/29/22 11:33 Penicillins [PCN] Allergy Unknown Verified 08/29/22 11:33 Social History Smoking Status: Former smoker ROS ROS ED ROS Narrative Denies recent illness. Review of Systems ROS Unobtainable: Denies due to encephalopathy Constitutional Constitutional ED: Denies chills or fever(s) Eyes Eyes: Denies blurry vision ENT ENT ED: Denies ear pain Cardiovascular Cardiovascular: Denies chest pain Respiratory/Chest Respiratory/Chest: Denies cough or dyspnea Gastrointestinal Gastrointestinal: Denies abdominal pain, melena, nausea or vomiting Genitourinary Genitourinary ED: Denies dysuria Musculoskeletal Musculoskeletal: Denies arthralgias Integumentary Denies abscess Neurologic Neurologic: Denies headache(s) Psychiatric Psychiatric: Denies anxiety Endocrine Endocrinology: Denies cold intolerance Allergic/Immunologic Allergic/Immunologic ED: Denies mouth swelling or tongue swelling EXAM Physical Exam Narrative Exam Narrative: 57-year-old male being evaluated in triage due to volume and acuity. Vital signs stable afebrile. No acute distress. H EENT exam give dry reactive light. No facial trauma. He is an L-shaped superficial laceration top of the scalp is approximately 3 inches in length. There is no active bleeding. No hematoma. It does not separate or need repaired. C-spine trachea nontender. Back nontender. Lungs are clear. Heart regular rhythm. Chest wall nontender. A bdomen soft nontender. Moving all 4 extremities. Nontender. Full range of motion. Neurologic exam normal. GCS of 15. Const Vital Signs: 08/29/22 11:31 Temperature 98.5 F Temperature Source Temporal Pulse Rate 74 Respiratory Rate 14 Blood Pressure 123/79 H Blood Pressure Mean 93 Pulse Ox 97 Oxygen Delivery Method Room Air Positive well nourished and well developed; Negative for obese, cachectic, contractures or unkempt General Appearance ED: well developed and NAD; Negative for unkempt, cachectic or contractures Nutritional Appearance: Negative for cachectic or obese HEENT HEENT Narrative: Top of the scalp is an L-shaped 3 inch laceration. No hematoma. No active bleeding. It does not separate or need repaired. It is a superficial wound. trauma; Negative for atraumatic Nose: Negative for septum abnormal Eyes PERRL and EOMs intact bilaterally General Eye ED: Negative for other Neck full ROM General: Negative for tenderness or other Chest Wall inspection of chest normal and palpation of chest normal Breast/Axilla Inspection: Negative for other Resp normal respiratory effort and clear to auscultation bilaterally Effort and Inspection: Negative for pain with movement Auscultation: Negative for rales, rhonchi or wheezes Cardio regular rhythm, S1 normal heart sound, S2 normal heart sound and no murmurs Jugular Venous Distention: Negative for other Palpation: Negative for palpable S3 Rate: regular rate Rhythm: Negative for abnormal rhythm Extremity normal to inspection and full ROM General Extremety ED: Negative for deformity or edema General Extremity: Negative for deformity or edema Neuro oriented x3, CN's II-XII intact bilaterally, moves all extremities, no focal motor deficits, no sensory deficits noted and gait normal Turner Coma Scale: document GCS findings Spontaneous Obeys Commands Oriented 15 Sensorium / Orientation: alert, oriented to person, oriented to place and oriented to time; Negative for orientation impaired, lethargic or stuporous Sensory Exam: No other Motor Exam: strength 5/5 throughout Psych mental status grossly normal and thought process normal Appearance: Negative for unkempt Attitude: No agitated Mood & Affect: Negative for depressed, anxious or tearful Skin no rashes or lesions noted, no wounds, skin turgor normal and no jaundice General Skin Exam: Negative for other Rashes: No rashes noted Trauma: Negative for abrasion Wounds: wounds noted MDM MDM MDM Narrative Medical decision making narrative: 57-year-old male has a L-shaped 3 and superficial laceration top of his scalp. It does not separate. It does not need repaired. This is not Worker's Comp. It will be cleaned and dressed. He will be discharged. He has no LOC. Has a normal neurologic exam he does not need any imaging. Discharge Plan Triage Chief Complaint: Head Injury ED Provider: James Small Dx/Rx/DC Orders Clinical Impression: Closed head injury, Laceration of scalp Instructions: ED Head Injury (Adult) Prescriptions: No Action bisoprolol-hydrochlorothiazide 10-6.25MG tablet 1 tab PO DAILY Label Comments: lisinopril 20 MG tablet 20 mg PO DAILY Label Comments: epinephrine 0.3 MG syringe 0.3 mg IM X1 Qty: 2 0RF multivitamin 1 EACH tablet 1 each PO DAILY Qty: 1 0RF Primary Care Provider: Sam Stevens Referrals: Sam Stevens DO [Primary Care Provider] - As Needed Activity Restrictions/Additional Instructions: Ice to scalp. Clean the wound daily with soap and water and dry thoroughly. This does not need to be repaired with sutures. Tylenol for any pain. Disposition Disposition: Home, Self Care
== END 2022-08-29 14:51 | disposition home or self-care (01) ==
PROVIDERS: Emergency Provider Emergency Medicine; PCP Preventive Medicine Occupational Medicine; Visit Provider Emergency Medicine
DX: S01.01XA Laceration without foreign body of scalp, initial encounter (principal); Z87.891 Personal history of nicotine dependence; W22.8XXA Striking against or struck by other objects, initial encounter; Y99.0 Civilian activity done for income or pay
CPT/HCPCS: 99282

== ENCOUNTER 2022-11-23 01:03 | Emergency (ER) | payer MEDICAID, SELFPAY ==
[2022-11-23 01:04] VITALS: BP 171/116; PULSE 84; RESP 15; TEMP 36.6; O2SAT 98; BMI 31.3
--- NOTE | 2022-11-23 01:56 | RAD_ITS ---
INDICATION: cough EXAMINATION/TECHNIQUE: X-RAY - XR Chest 2 Views COMPARISON: None. FINDINGS: LINES/DEVICES: None. LUNGS: No consolidation, edema or effusion. No pneumothorax. MEDIASTINUM AND CARDIOVASCULAR STRUCTURES: Cardiac silhouette not enlarged. Central airways and mediastinal contour are unremarkable. BONES AND SOFT TISSUES: Unremarkable. RAD/Chest PA and Lateral IMPRESSION: No radiographic evidence of acute cardiopulmonary disease. Electronically Signed: Vinh King MD at 2:27 EDT ,
--- NOTE | 2022-11-23 02:10 | EDS_ITS ---
HPI History of Present Illness Chief Complaint: General Illness Narrative Narrative: Patient is a 57-year-old male with past medical history of smoking but no formal diagnosis of COPD as well as hypertension and alcohol abuse. He states he has been staying in a motel with a current smoker. He states that once he has been exposed to the secondhand smoke he has had persistent cough. He states it is a combination of clear and green-tinged in color. He states has been having difficulty sleeping secondary to the persistent cough. He is unsure if his symptoms are related to exposure or possible infection and secondary to this he comes in for evaluation [facility] Home Medications bisoprolol 10 mg-hydrochlorothiazide 6.25 mg tablet 1 tab PO DAILY blood pressure 02/24/18 [History Last Taken 12/08/20] epinephrine 0.3 mg/0.3 mL injection, auto-injector 0.3 mg (0.3 mL) IM X1 ##2 02/24/18 [Rx Last Taken Unknown] lisinopril 20 mg tablet 20 mg PO DAILY blood pressure 02/24/18 [History Last Ralph en 12/08/20] multivitamin 1 each PO DAILY #1 TAB 12/10/20 [Rx Last Taken Unknown] albuterol sulfate 90 mcg/actuation aerosol inhaler (Ventolin HFA) 1 - 2 puff inhalation Q4H PRN PRN Wheezing #1 device 11/23/22 [Rx Last Taken Unknown] benzonatate 200 mg capsule 200 mg PO TID PRN cough #30 caps 11/23/22 [Rx Last Taken Unknown] prednisone 20 mg tablet 40 mg PO DAILY 5 days #10 tabs 11/23/22 [Rx Last Taken Unknown] Allergy/AdvReac Type Severity Reaction Status Date / Time bee venom protein (honey bee) Allergy Anaphylaxis Verified 11/23/22 01:09 Penicillins [PCN] Allergy Unknown Verified 11/23/22 01:09 Social History Smoking Status: Former smoker ROS ROS ED Constitutional Constitutional ED: Denies chills or fever(s) ENT ENT ED: Reports rhinorrhea; Denies sore throat Cardiovascular Cardiovascular: Denies chest pain Respiratory/Chest Respiratory/Chest: Reports cough; Denies dyspnea Gastrointestinal Gastrointestinal: Denies abdominal pain, diarrhea, nausea or vomiting Genitourinary Genitourinary ED: Denies dysuria Musculoskeletal Musculoskeletal: Denies myalgias Integumentary Denies rash Neurologic Neurologic: Denies headache(s) Hematologic/Lymphatic Hematologic/Lymphatic: Denies easy bleeding or easy bruising EXAM Physical Exam Const Vital Signs: 11/23/22 01:04 11/23/22 01:08 11/23/22 03:04 Temperature 97.8 F Temperature Source Oral Pulse Rate 84 Respiratory Rate 15 19 H Respiratory Effort Normal Non-Labored Respiratory Pattern Normal Blood Pressure 171/116 H Blood Pressure Mean 134 Pulse Ox 98 99 Oxygen Delivery Method Room Air Room Air Positive well nourished and well developed General Appearance ED: well developed HEENT Reports moist mucous membranes HEENT Narrative: Mild cobblestoning the posterior pharynx without oral lesions airway edema or compromise Eyes PERRL and EOMs intact bilaterally Neck supple and no JVD Chest Wall palpation of chest normal Resp normal respiratory effort Resp Narrative: Patient has faint rhonchi in the upper lobes on expiration otherwise no nasal flaring retractions tachypnea or accessory muscle use Cardio regular rate and regular rhythm Extremity normal to inspection Extremity Narrative: No asymmetric edema no pitting edema negative Homans' sign bilaterally Neuro oriented x3 and CN's II-XII intact bilaterally Sensorium / Orientation: alert Psych mental status grossly normal Skin no rashes or lesions noted MDM MDM MDM Narrative Medical decision making narrative: Patient presented to the ER with complaint of secondhand smoke exposure and persistent cough with this. In the ER his work of breathing is normal his pulse ox is 98 to 100% on room air and cough has improved with just removal from the environment. Concern is for developing pneumonia viral infection pneumothorax or possible ZOEY inhibitor induced cough as he is on this for hypertension as well. However as his history and exam is most consistent with a chemical exposure I felt only need for chest x-ray at this time. Chest x-ray revealed no acute lung pathology and patient had diminished cough and work of breathing while in the ER as he was removed from the smoke exposure. Therefore at this time he is not hypoxic he is not requiring supplemental oxygen he does not have pneumonia or signs of septicemia and therefore he can be placed on symptomatic medications and discharged History & Record Review Discussion w/independent historian: Patient Radiography Diagnostic Testing: Clinical Impression(s) from Imaging Studies Chest X-Ray 11/23/22 01:56 IMPRESSION: No radiographic evidence of acute cardiopulmonary disease. Electronically Signed: Vinh King MD at 2:27 EDT , Chest x-ray as interpreted by the emergency medicine physician reveals no acute infiltrate pneumothorax or pleural effusion Discharge Plan Triage Chief Complaint: General Illness ED Provider: Gabriel Rajan Dx/Rx/DC Orders Clinical Impression: Exposure to secondhand smoke, Cough, Chemical pneumonitis, Hypertension Instructions: ED Understanding Hypersensitivity Pneumonitis, Tobacco Smoke Exposure Prescriptions: New prednisone 20 mg tablet 40 mg PO DAILY 5 Days Qty: 10 0RF albuterol sulfate [Ventolin HFA] 90 mcg/actuation HFA aerosol inhaler 1 - 2 puff inhalation Q4H PRN PRN (Reason: Wheezing) Qty: 1 0RF benzonatate 200 mg capsule 200 mg PO TID PRN (Reason: cough) Qty: 30 0RF No Action bisoprolol-hydrochlorothiazide 10-6.25MG tablet 1 tab PO DAILY Label Comments: lisinopril 20 MG tablet 20 mg PO DAILY Label Comments: epinephrine 0.3 MG syringe 0.3 mg IM X1 Qty: 2 0RF multivitamin 1 EACH tablet 1 each PO DAILY Qty: 1 0RF Primary Care Provider: Sam Stevens Referrals: Sam Stevens DO [Primary Care Provider] - Activity Restrictions/Additional Instructions: Your x-ray does not show any pneumonia or fluid in your lungs. Your history and exam indicate that your persistent cough is secondary to your smoke exposure. Take the medication as directed to help reduce your cough but until you can be removed from the smoke exposure the cough will persist. Please return to the ER should you have any further concerns. Disposition Disposition: Home, Self Care Discharge Date/Time: 11/23/22 03:15
[2022-11-23 03:04] VITALS: RESP 19; O2SAT 99
== END 2022-11-23 03:15 | disposition home or self-care (01) ==
PROVIDERS: Emergency Provider Emergency Medicine; PCP Preventive Medicine Occupational Medicine; Visit Provider Emergency Medicine
DX: T59.94XA Toxic effect of unspecified gases, fumes and vapors, undetermined, initial encounter (principal); J68.0 Bronchitis and pneumonitis due to chemicals, gases, fumes and vapors; I10 Essential (primary) hypertension; Z87.891 Personal history of nicotine dependence; Z59.00 Homelessness unspecified; Z79.52 Long term (current) use of systemic steroids; Z79.899 Other long term (current) drug therapy
CPT/HCPCS: 71046; 99282

== ENCOUNTER 2023-01-01 12:00 | Emergency (ER) | payer MEDICAID, SELFPAY ==
[2023-01-01 12:01] VITALS: BP 158/91; PULSE 66; RESP 18; TEMP 35.5; O2SAT 100; BMI 30.3
--- NOTE | 2023-01-01 12:16 | ED.VIS.BACK ---
HPI <DIANDRA Herman - Last Filed: 01/01/23 15:34> History of Present Illness Chief Complaint: Back Narrative Narrative: Patient presenting today with lower right-sided back pain that radiates down the back of patient's R leg that he has had since Monday. He states that the pain is somewhat improving, however, he wanted to be evaluated since he does not gone away. Patient states he recently started a new job and he is on his feet 12 hours a day and performs a lot of turning and twisting movements at work. He has had similar pain in the past, however, it usually goes away after a day. He has been trying to do different stretching exercises without relief. He denies any fever, injury to the back or right lower extremity, saddle paresthesia, bowel/bladder incontinence, dysuria, and urinary frequency. PFSH <DIANDRA Herman - Last Filed: 01/01/23 15:34> PFSH Medical History no medical history Home Medications bisoprolol 10 mg-hydrochlorothiazide 6.25 mg tablet 1 tab PO DAILY blood pressure 02/24/18 [History Last Taken 12/08/20] epinephrine 0.3 mg/0.3 mL injection, auto-injector 0.3 mg (0.3 mL) IM X1 ##2 02/24/18 [Rx Last Taken Unknown] lisinopril 20 mg tablet 20 mg PO DAILY blood pressure 02/24/18 [History Last Taken 12/08/20] multivitamin 1 each PO DAILY #1 TAB 12/10/20 [Rx Last Taken Unknown] albuterol sulfate 90 mcg/actuation aerosol inhaler (Ventolin HFA) 1 - 2 puff inhalation Q4H PRN PRN Wheezing #1 device 11/23/22 [Rx Last Taken Unknown] benzonatate 200 mg capsule 200 mg PO TID PRN cough #30 caps 11/23/22 [Rx Last Taken Unknown] prednisone 20 mg tablet 40 mg PO DAILY 5 days #10 tabs 11/23/22 [Rx Last Taken Unknown] prednisone 20 mg tablet 40 mg PO DAILY 7 days #14 tabs 01/01/23 [Rx Last Taken Unknown] Allergy/AdvReac Type Severity Reaction Status Date / Time bee venom protein (honey bee) Allergy Anaphylaxis Verified 01/01/23 12:03 Penicillins [PCN] Allergy Unknown Verified 01/01/23 12:03 Surgical History no surgical history Social History Smoking Status: Former smoker ROS <DIANDRA Herman - Last Filed: 01/01/23 15:34> ROS ED Constitutional Constitutional ED: Denies chills or fever(s) Cardiovascular Cardiovascular: Denies chest pain or palpitations Respiratory/Chest Respiratory/Chest: Denies cough or dyspnea Gastrointestinal Gastrointestinal: Denies abdominal pain, nausea or vomiting Genitourinary Genitourinary ED: Denies dysuria, hematuria or urinary urgency Musculoskeletal Musculoskeletal: Reports arthralgias, back pain and myalgias Integumentary Denies abscess, Abrasions or rash Neurologic Neurologic: Denies confusion, dizziness or paresthesias Psychiatric Psychiatric: Denies anxiety, depression, suicidal ideation or suicidal thoughts EXAM <DIANDRA Herman - Last Filed: 01/01/23 15:34> Physical Exam Const Vital Signs: 01/01/23 12:01 Temperature 96 F L Temperature Source Temporal Pulse Rate 66 Respiratory Rate 18 Blood Pressure 158/91 H Blood Pressure Mean 113 Pulse Ox 100 Oxygen Delivery Method Room Air Positive well nourished, well developed and no apparent distress General Appearance ED: well developed HEENT Reports normocephalic and head/scalp atraumatic Mouth ED: Yes moist mucous membranes normal Eyes PERRL and EOMs intact bilaterally Neck full ROM and supple Chest Wall inspection of chest normal Resp normal respiratory effort and clear to auscultation bilaterally Cardio regular rate and regular rhythm GI soft to palpation, non-tender, non-distended and no masses Back/Spine normal ROM and normal to inspection Back/Spine Narrative: No midline spinal tenderness. Extremity normal to inspection and full ROM Neuro oriented x3, CN's II-XII intact bilaterally, moves all extremities, no focal motor deficits and no sensory deficits noted Sensorium / Orientation: awake and alert Psych mental status grossly normal and thought process normal Skin no rashes or lesions noted and no wounds <Dr. James Small MD - Last Filed: 01/01/23 12:25> Physical Exam Const Vital Signs: 01/01/23 12:01 Temperature 96 F L Temperature Source Temporal Pulse Rate 66 Respiratory Rate 18 Blood Pressure 158/91 H Blood Pressure Mean 113 Pulse Ox 100 Oxygen Delivery Method Room Air MDM <DIANDRA Herman - Last Filed: 01/01/23 15:34> [facility] Narrative Medical decision making narrative: Patient presenting today with right-sided sciatica pain. He has had this in the past and has never had it evaluated. No concerning symptoms for cauda equina syndrome. Strength is intact. I do not feel that any imaging is necessary as patient does not have any midline spinal tenderness nor was there any injury. He will be given prednisone for 1 week. He is to follow-up with his PCP and return for any worsening of symptoms. He will be discharged home in stable condition. He is comfortable with this plan. I have personally performed a face to face assessment of the patient and have reviewed the CANDICE Note. I performed a substantive portion of the visit including all aspects of the following. My patel findings include: History is [57-year-old male right-sided lower back pain going into his right hamstring and down his leg. Prior history of sciatica. No falls or trauma. No fever. No bowel or bladder incontinence. No prior back surgery. Prior history of sciatica.] Exam is [well-appearing 57-year-old male. Vital signs stable afebrile. Lungs clear. Heart regular rhythm. Abdomen soft nontender. No pulsatile mass. No peritoneal signs. Moving all 4 extremities. Neurovascular intact. Back spine nontender right SI tender left SI nontender. Positive straight leg raise on the right. Both lower extremities are neurovascular intact. 5 out of 5 strength. Dorsi plantarflexion intact. No cauda equina. No saddle anesthesia. Normal medial thigh sensation.] Medical Decision Making [exam and history consistent with right sciatica. Treated with prednisone 40 mg a day for a week. Follow-up as needed. Return if worse.] Other additions or changes: [None] <Dr. James Small MD - Last Filed: 01/01/23 12:25> [facility] Narrative Medical decision making narrative: I have personally performed a face to face assessment of the patient and have reviewed the CANDICE Note. I performed a substantive portion of the visit including all aspects of the following. My patel findings include: History is [57-year-old male right-sided lower back pain going into his right hamstring and down his leg. Prior history of sciatica. No falls or trauma. No fever. No bowel or bladder incontinence. No prior back surgery. Prior history of sciatica.] Exam is [well-appearing 57-year-old male. Vital signs stable afebrile. Lungs clear. Heart regular rhythm. Abdomen soft nontender. No pulsatile mass. No peritoneal signs. Moving all 4 extremities. Neurovascular intact. Back spine nontender right SI tender left SI nontender. Positive straight leg raise on the right. Both lower extremities are neurovascular intact. 5 out of 5 strength. Dorsi plantarflexion intact. No cauda equina. No saddle anesthesia. Normal medial thigh sensation.] Medical Decision Making [exam and history consistent with right sciatica. Treated with prednisone 40 mg a day for a week. Follow-up as needed. Return if worse.] Other additions or changes: [None] History & Record Review Discussion w/independent historian: Patient Discharge Plan Triage Chief Complaint: Back ED Midlevel Provider: Yanet Cardozo ED Provider: James Small Dx/Rx/DC Orders Clinical Impression: Right sided sciatica Instructions: ED Sciatica Prescriptions: New prednisone 20 mg tablet 40 mg PO DAILY 7 Days Qty: 14 0RF No Action bisoprolol-hydrochlorothiazide 10-6.25MG tablet 1 tab PO DAILY Label Comments: lisinopril 20 MG tablet 20 mg PO DAILY Label Comments: epinephrine 0.3 MG syringe 0.3 mg IM X1 Qty: 2 0RF multivitamin 1 EACH tablet 1 each PO DAILY Qty: 1 0RF prednisone 20 mg tablet 40 mg PO DAILY 5 Days Qty: 10 0RF albuterol sulfate [Ventolin HFA] 90 mcg/actuation HFA aerosol inhaler 1 - 2 puff inhalation Q4H PRN PRN (Reason: Wheezing) Qty: 1 0RF benzonatate 200 mg capsule 200 mg PO TID PRN (Reason: cough) Qty: 30 0RF Primary Care Provider: Sam Stevens Referrals: Sam Stevens DO [Primary Care Provider] - 5-7 Days Activity Restrictions/Additional Instructions: Follow-up at your next PCP appointment. Please return for any worsening of symptoms. Alternate Tylenol and ibuprofen for your pain. Disposition Disposition: Home, Self Care Discharge Date/Time: 01/01/23 12:29
== END 2023-01-01 12:29 | disposition home or self-care (01) ==
LOC: ED 12:23
PROVIDERS: Emergency Provider Emergency Medicine; PCP Preventive Medicine Occupational Medicine; Visit Provider Emergency Medicine
DX: M54.41 Lumbago with sciatica, right side (principal); Z79.899 Other long term (current) drug therapy; Z87.891 Personal history of nicotine dependence
CPT/HCPCS: 99282